=== PATIENT | male | born 1990 | race Caucasian/White ===

== ENCOUNTER 2020-03-18 14:48 | Emergency (ER) | payer OTHER ==
--- NOTE | 2020-03-18 16:17 | EDM.PDOC ---
ED HPI GENERAL MEDICAL PROBLEM - General Chief Complaint: Lower Extremity Injury/Pain Stated Complaint: HURT TOES Time Seen by Provider: 03/18/20 16:07 - History of Present Illness INITIAL COMMENTS - FREE TEXT/NARRATIVE: History of present illness: 29-year-old male presenting with left foot pain dropping a board on his foot yesterday afternoon. Has been trying to avoid putting weight on it as it is painful with bearing weight. It is bruised, maximally over the second and third digits. Superficial abrasion. The patient reports last tetanus shot 1 year ago. Pain is relatively well controlled when not walking on it and the patient declined any pain medications at this time. Review of systems: As per history of present illness and below otherwise all systems reviewed and negative. Past medical history: As per history of present illness and as reviewed below otherwise noncontributory. Surgical history: As per history of present illness and as reviewed below otherwise noncontributory. Social history: No reported history of drug or alcohol abuse. Occasional alcohol. No tobacco. Family history: As per history of present illness and as reviewed below otherwise noncontributory. Physical exam: GEN: no acute distress, well appearing HEENT: Atraumatic, normocephalic, mucous membranes moist, Neck: supple, nontender, trachea midline. Lungs: No respiratory distress. Heart: RRR Extremities: Tender to palpation and ecchymosis left foot over the second and third digits. No fifth metatarsal tenderness, no ankle tenderness. No other areas of pain or tenderness or injury. Neurovascularly intact. Neuro: Awake, alert, oriented. Neuro Exam nonfocal. Skin: warm, dry, ecchymosis and abrasion of the left foot as described above Diagnostics: X-ray foot Therapeutics: Declined meds MDM: Impression: [] Plan: [] Definitive disposition and diagnosis as appropriate pending reevaluation and review of above. Review of Systems - Review of Systems Review Of Systems: See Below (See HPI) ED EXAM, GENERAL - Physical Exam Exam: See Below (See HPI) Course - Vital Signs Text/Narrative:: Pain and ecchymosis over the dorsum of the left foot. No fracture seen on x- ray. Continue ice and NSAIDs as well as keeping the foot elevated. Stable for discharge. We will refer for podiatry follow-up in case pain not improved after 1 week. - Re-Assessments/Exams Free Text/Narrative Re-Assessment/Exam: 03/18/20 16:56 Negative foot x-ray results discussed with the patient. Plan of care discussed with the patient. Stable for discharge. Departure - Departure Time of Disposition: 16:56 Disposition: Home, Self-Care 01 Clinical Impression: Contusion of left foot - Discharge Information Instructions: Contusion, [id number], How to Use Cold Therapy, [id number], Foot Contusion Referrals: PCP,None [Primary Care Provider] - Chris Vazquez DPM [Physician] - Forms: ED Department Discharge Additional Instructions: Keep the foot elevated as much as possible. Apply ice to the area for 20 minutes at a time 3-4 times a day. You may take Tylenol or ibuprofen every 8 hours for the pain. If your pain is not improved after 1 week, please follow-up with the radiator repairer listed above. The following information is given to patients seen in the emergency department who are being discharged to home. This information is to outline your options for follow-up care. We provide all patients seen in our emergency department with a follow-up referral. The need for follow-up, as well as the timing and circumstances, are variable depending upon the specifics of your emergency department visit. If you don't have a primary care physician on staff, we will provide you with a referral. We always advise you to contact your personal physician following an emergency department visit to inform them of the circumstance of the visit and for follow-up with them and/or the need for any referrals to a consulting specialist. The emergency department will also refer you to a specialist when appropriate. This referral assures that you have the opportunity for follow-up care with a specialist. All of these measure are taken in an effort to provide you with optimal care, which includes your follow-up. Under all circumstances we always encourage you to contact your private physician who remains a resource for coordinating your care. When calling for follow-up care, please make the office aware that this follow-up is from your recent emergency room visit. If for any reason you are refused follow-up, please contact the [facility] Emergency Department at and asked to speak to the emergency department charge nurse.
--- NOTE | 2020-03-18 16:49 | CR ---
Left foot: 3 views left foot were obtained. Comparison: No prior foot exam is available. Joint spaces are preserved. No fracture, dislocation or other bony abnormality is seen. Impression: 1. No abnormality is appreciated on 3 view left foot exam. Diagnostic code #1 This report was dictated in MDT
== END 2020-03-18 17:20 | disposition home or self-care (01) ==
LOC: MW.ED 14:48
DX: S90.32XA Contusion of left foot, initial encounter (principal); W20.8XXA Other cause of strike by thrown, projected or falling object, initial encounter
CPT/HCPCS: 73630-26-LT; 73630-LT; 99282; 99283-25

== ENCOUNTER 2022-11-25 06:47 | Day surgery (SDC) | payer OTHER ==
[~2022-11-25 06:47] MED LIST: Lactated Ringers 1,000 ML IV SCH
[2022-11-25] MEDS ORDERED: Dexamethasone 4 MG/ML 5 ML MDV ONE (07:24)
[2022-11-25] MEDS ORDERED: Propofol 200 MG/20 ML SDV ONE (07:24)
[2022-11-25] MEDS ORDERED: Bupivacaine 0.5% 30 ML SDV ONE (07:24)
[2022-11-25] MEDS ORDERED: fentaNYL 100 MCG/2 ML SDV ONE (07:24)
[2022-11-25] MEDS ORDERED: Sugammadex Sodium 200 MG/2 ML VIAL ONE (07:24)
[2022-11-25] MEDS ORDERED: Ondansetron 4 MG/2 ML SDV ONE (07:24)
[2022-11-25] MEDS ORDERED: Ketorolac 30 MG/ML SDV ONE (07:24)
[2022-11-25] MEDS ORDERED: Rocuronium Bromide 50 MG/5 ML Syringe ONE (07:24)
[2022-11-25] MEDS ORDERED: Lidocaine 2% 5 ML SDV ONE (07:24)
[2022-11-25] MEDS ORDERED: Acetaminophen/HYDROcodone 325-5 MG Tab PO PRN ×2 (09:10→09:16)
[2022-11-25] MEDS ORDERED: Lactated Ringers 1,000 ML IV SCH (09:15)
== END 2022-11-25 11:00 | disposition home or self-care (01) ==
LOC: MW.SDS 06:47
PROVIDERS: ATTEND Surgery
DX: D17.1 Benign lipomatous neoplasm of skin and subcutaneous tissue of trunk (principal); F41.9 Anxiety disorder, unspecified; F32.A Depression, unspecified; E66.9 Obesity, unspecified; Z79.899 Other long term (current) drug therapy; Z98.890 Other specified postprocedural states; Z87.891 Personal history of nicotine dependence
CPT/HCPCS: 21933; J1100; J1885; J2405; J2704; J3010; J3490; J7120; 00300

== ENCOUNTER 2024-03-16 02:08 | Emergency (ER) | payer OTHER ==
[2024-03-16 02:22] LABS: BASOPHILS ABSOLUTE AUTO 0.02 K/uL (0.00-0.20); BASOPHILS PERCENT AUTO 0.3 % (0.0-1.0); EOSINOPHILS ABSOLUTE AUTO 0.02 K/uL (0.00-0.45); EOSINOPHILS PERCENT AUTO 0.3 % (0.0-6.0); HEMATOCRIT 42.1 % (42.0-52.0); HEMOGLOBIN 14.6 g/dL (14.0-18.0); IMMATURE GRAN ABSOLUTE AUTO 0.02 K/uL (0.00-0.05); IMMATURE GRAN PERCENT AUTO 0.3 % (0.0-0.4); LYMPHOCYTES ABSOLUTE AUTO 1.41 K/uL (1.00-4.80); MEAN CORPUSCULAR HEMOGLOBIN 29.1 pg (28.0-32.0); MEAN CORPUSCULAR HGB CONC 34.7 g/dL (32.0-36.0); MEAN PLATELET VOLUME 9.8 fL (9.4-12.4); MONOCYTES ABSOLUTE AUTO 0.59 K/uL (0.00-0.80); MONOCYTES PERCENT AUTO 8.4 % (0.0-8.0); NEUTROPHILS ABSOLUTE AUTO 4.99 K/uL (1.80-7.70); NEUTROPHILS PERCENT AUTO 70.7 % (41.0-71.0); PLATELET COUNT,PLT 203 K/uL (150-400); RED BLOOD CELL COUNT 5.01 M/uL (4.52-5.90); WHITE BLOOD CELL COUNT,WBC 7.05 K/uL (3.9-11.3)
[2024-03-16 02:40] LABS: A/G RATIO 1.5 (0.9-1.6); ACETAMINOPHEN <2.0 ug/mL; ALANINE AMINOTRANSFERASE,ALT 28 IU/L (14-63); ALBUMIN 4.1 g/dL (3.4-5.0); ALKALINE PHOSPHATASE 72 U/L (46-116); ASPARTATE AMNIOTRANSFERASE,AST 33 IU/L (15-37); BILIRUBIN TOTAL 0.9 mg/dL (0.2-1.0); BLOOD UREA NITROGEN,BUN 17 mg/dL (7.0-18.0); CALCIUM 8.9 mg/dL (8.5-10.1); CARBON DIOXIDE,CO2 26.4 mmol/L (21.0-32.0); CHLORIDE,CL 104 mmol/L (98-107); CREATININE 1.1 mg/dL (0.8-1.3); EST CRCL DRUG DOSING (CG) 103.63 mL/min; ETHANOL BLOOD MEDICAL <3 mg/dL; GLUCOSE RANDOM 94 mg/dL (74-106); MAGNESIUM 1.9 mg/dL (1.8-2.4); POTASSIUM,K 3.9 mmol/L (3.5-5.1); PROTEIN TOTAL,TP 6.9 g/dL (6.4-8.2); SODIUM,NA 140 mmol/L (136-148)
[2024-03-16 02:52] LABS: ESTIMATED GFR 92 mL/min (>60)
[2024-03-16] MEDS: Sodium Chloride 0.9% 2.5 ML Syringe FLUSH PRN (06:31)
[2024-03-16] MEDS: Sodium Chloride 0.9% 10 ML Syringe FLUSH PRN (06:31)
[2024-03-16] MEDS: HYDROmorphone 0.5 MG/0.5 ML Syringe IVPUSH ONE (06:31)
[2024-03-16 06:37] LABS: APPEARANCE,URINE CLEAR; BILIRUBIN,URINE NEGATIVE (NEGATIVE); COLOR,URINE YELLOW; GLUCOSE,URINE NEGATIVE (NEGATIVE); KETONES,URINE 40 mg/dL (NEGATIVE); LEUKOCYTE ESTERASE,URINE NEGATIVE (NEGATIVE); NITRITE,URINE NEGATIVE (NEGATIVE); OCCULT BLOOD,URINE NEGATIVE (NEGATIVE); PH,URINE 5.5 (5.0-8.0); PROTEIN,URINE TRACE mg/dL (NEGATIVE); UROBILINOGEN,URINE 0.2 EU/dL (<2.0)
[2024-03-16] MEDS ORDERED: Phenylephrine HCl In 0.9% NaCl 1 MG/10 ML Syringe SCH (06:45)
[2024-03-16 06:46] LABS: AMPHETAMINES SCREEN, URINE PRESUMPTIVE POSITIVE (CUTOFF=500); BARBITURATE SCREEN,URINE NEGATIVE (CUTOFF=200); BENZODIAZEPINES SCREEN,URINE NEGATIVE (CUTOFF=150); BUPRENORPHINE SCREEN,URINE NEGATIVE (CUTOFF=10); METHADONE SCREEN, URINE NEGATIVE (CUTOFF=200); METHAMPHETAMINES SCREEN, URINE PRESUMPTIVE POSITIVE (CUTOFF=500); OXYCODONE SCREEN,URINE NEGATIVE (CUT0FF=100); PCP SCREEN,URINE NEGATIVE (CUTOFF=25); THC SCREEN,URINE 20 NG/ML NEGATIVE (CUTOFF=50)
[2024-03-16 06:49] LABS: BACTERIA,URINE FEW (NEGATIVE); EPITHELIAL CELLS,URINE RARE (NONE-FEW); RBC,URINE 0-3 (0-2/HPF); WBC,URINE 0-2 (0-5/HPF)
[2024-03-16] MEDS: Lidocaine 1% with EPINEPHrine 1:200,000 30 ML SDV INJECT ONE (07:03)
== END 2024-03-16 11:48 ==
LOC: MW.ED 02:08
DX: T14.91XA Suicide attempt, initial encounter (principal); T43.211A Poisoning by selective serotonin and norepinephrine reuptake inhibitors, accidental (unintentional), initial encounter; T39.1X1A Poisoning by 4-Aminophenol derivatives, accidental (unintentional), initial encounter; E66.9 Obesity, unspecified; Z79.899 Other long term (current) drug therapy; Z68.31 Body mass index [BMI] 31.0-31.9, adult; Z75.8 Other problems related to medical facilities and other health care
CPT/HCPCS: 36415; 80053; 80143; 80179; 80305; 80307; 81001; 83735; 85025; 93005; 96374; 99285; J1170; J3490